=== PATIENT | female | born 2000 | race Caucasian/White ===

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

== ENCOUNTER 2022-09-27 09:03 | Observation (INO) ==
[2022-09-27] MEDS ORDERED: ONDANSETRON INJ 2 MG/ML 2 ML VIAL IV STA (09:38)
[2022-09-27] MEDS ORDERED: KETOROLAC TROMETHAMINE 15 MG/ML VIAL IV STA (09:38)
[2022-09-27] MEDS ORDERED: SODIUM CHLORIDE 0.9% 1000ML 1,000 ML IV SCH ×2 (09:39→18:17)
--- NOTE | 2022-09-27 09:43 | Emergency Department Note ---
History of Present Illness General Chief complaint: Abdominal Pain Stated complaint: ABD PAIN, POSSIBLE MISCARRIAGE Time Seen by Provider: 09/27/22 09:15 History of Present Illness Maximum Pain Intensity: 6 Patient is a 22-year-old female with past medical history significant for Analilia-Danlos syndrome, fibromyalgia, OCD, anxiety, depression and migraine disorder who presents emergency department for evaluation of irregular vaginal bleeding and right lower quadrant abdominal pain. Last menstrual period was 08/27, and normally her cycles are 30 days. She was sexually active at the time of her last menses. She states he used a condom but she was not sure if it fit properly. She states that she developed heavy vaginal bleeding starting 09/18, which was weak earlier than her normal menses was expected. She states that it started as spotting, then developed into large clots, she had some fairly heavy bleeding for about 4 days which eventually tapered off, she has not had any b leeding for 2 days. At the same time as the onset of the bleeding, she has had a sharp, right lower quadrant abdominal pain. The pain has persisted, despite the bleeding stopped, and is getting worse. It is not radiating across to the suprapubic region. She reports having a headache from this and feeling near syncopal from the pain. She is tried warm baths and Tylenol for the discomfort. She currently rates her pain a 6/10. She did not try taking a home test. Denies nausea or vomiting. No fevers. Home Medications Medication Instructions Recorded Confirmed Type cholecalciferol (vitamin D3) 1,250 50,000 unit PO . Q 2WEEKS 08/27/21 09/27/22 History mcg (50,000 unit) capsule ferrous sulfate 325 mg (65 mg 325 mg PO DAILY 08/27/21 09/27/22 History iron) tablet (FeroSul) hydroxyzine HCl 25 mg tablet 25 mg PO Q4H PRN Anxiety 08/27/21 09/27/22 History levocetirizine 5 mg tablet (Xyzal) 5 mg PO DAILY 08/27/21 09/27/22 History clindamycin phosphate 1 % lotion 1 applic topical DAILY PRN 09/27/22 09/27/22 History folliculitis Allergies Allergy/AdvReac Type Severity Reaction Status Date / Time kiwi Allergy Mild mouth Verified 10/10/21 21:33 hoffman/swells soy Allergy Mild painful Verified 10/10/21 21:33 stomach and mouth tingles Past Med/Surg History Medical History Anxiety Depression EDS (Analilia-Danlos syndrome) Fibromyalgia History of migraine headaches OCD (obsessive compulsive disorder) Surgical History History of tonsillectomy Social History Smoking Status: Never smoker Preferred Language: Ukrainian Current Living Situation Comment: roommate 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 Feels Safe at Home: Yes Review of Systems A total of 10 systems reviewed and were otherwise negative Physical Exam Vital Signs Vital Signs - 24 hr 09/27/22 09:05 09/27/22 12:42 09/27/22 13:52 Temperature 36.4 C L Temperature Source Temporal Artery Scan Pulse Rate 119 H 84 Pulse Rate [Left Finger] 91 H Pulse Rhythm [Left Finger] Regular Pulse Strength [Left Finger] Normal Respiratory Rate 20 20 20 Respiratory Effort / Characteristics Non-Labored Spontaneous Non-Labored Spontaneous Respiratory Depth Normal Normal Respiratory Pattern Regular Blood Pressure 137/99 139/96 Blood Pressure [Right Arm] 154/99 H Blood Pressure Mean 111 110 Blood Pressure Mean [Right Arm] 117 Blood Pressure Position [Right Arm] Sitting Pulse Oximetry 99 97 100 Oxygen Delivery Method Room Air Room Air Room Air Sepsis Recent Fever Within 48 Hours No Sepsis New/Unexplained Change in Mental Status No Sepsis Action Taken by Nursing No Action Required 09/27/22 14:20 Temperature 37 C Temperature Source Oral Pulse Rate Pulse Rate [Left Finger] 96 H Pulse Rhythm [Left Finger] Regular Pulse Strength [Left Finger] Normal Respiratory Rate 18 Respiratory Effort / Characteristics Non-Labored Spontaneous Respiratory Depth Normal Respiratory Pattern Regular Blood Pressure Blood Pressure [Right Arm] 139/82 Blood Pressure Mean Blood Pressure Mean [Right Arm] 101 Blood Pressure Position [Right Arm] Lying Pulse Oximetry 100 Oxygen Delivery Method Room Air Sepsis Recent Fever Within 48 Hours Sepsis New/Unexplained Change in Mental Status Sepsis Action Taken by Nursing CONSTITUTIONAL: Well-appearing 22-year-old female who is awake and alert and in no acute distress. EYES: Pupils equal, round, reactive to light and accommodation. EOMs intact without nystagmus. Sclera are anicteric. ENT: Tympanic membranes intact, with normal landmarks. External canals are clear. Oral and nasopharynx are clear. Mucous membranes are moist, no lesions, tongue and gums appear normal. CARDIOVASCULAR: Regular rate and rhythm. Peripheral pulses easily palpable. RESPIRATORY: Breath sounds equal and clear to auscultation. ABDOMEN: Bowel sounds are present. The abdomen is soft, mildly obese, tender to percussion and palpation in the right lower quadrant, with guarding. No rigidity. INTEGUMENTARY: No lesions or rash, normal skin turgor. LYMPH: No lymphadenopathy. Course Course The patient was seen and assessed as above. External medical records are reviewed. She presents to the emergency department for evaluation of irregular vaginal bleeding x1 week with associated right lower quadrant pain. Pain is been present for a week and gotten worse in the last couple of days. IV lock was initiated and laboratory studies were collected. She was hydrated with normal saline solution and medicated with Zofran and Toradol for pain. CBC with differential, CMP, quantitative hCG and urinalysis were ordered. CT scan of the abdomen and pelvis with IV contrast was obtained. Laboratory studies per my interpretation note a normal white count 10,600, left shift noted. No anemia. Electrolytes and renal functions are normal. Transaminases are not elevated. Quantitative hCG is undetectable, making unlikely. A urine sample was sent for microscopy and was completely clear with no signs of UTI. Patient was reassessed. Laboratory studies were reviewed with her. She did report that her pain was improved with the IV medications. She is going to CAT scan. CT scan of the abdomen and pelvis with IV contrast per my interpretation note swelling and dilation of the appendix with periappendiceal fat stranding and fluid concerning for acute appendicitis. No abscess. No pneumoperitoneum. Remainder of the CT scan is unremarkable, specifically the reproductive organs. Patient was reassessed. CT scan findings were reviewed with her, and she is aware of pending surgical consultation. Patient was discussed with Em Sanders PA-C working with Dr. Freeman today. Please refer to surgical consultation for further information. Patient will be taken to the OR later today. Administered Medications Discontinued Medications Bupivacaine HCl (Bupivacaine 0.5 % 5 Mg/1 Ml Mpf 30ml Vial) Confirm Administered Dose 30 ml .ROUTE .Peerflix ONE Stop: 09/27/22 14:43 Last Admin: 09/27/22 15:51 Dose: 10 ml Documented By: [facility] Sodium Chloride (Nss 1000ml) 1,000 mls @ 999 mls/hr IV .Q1H1M JUAN Stop: 09/27/22 10:39 Last Infusion: 09/27/22 11:59 Dose: 0 mls/hr Documented By: Admin: 09/27/22 10:02 Dose: 999 mls/hr Documented By: Cefoxitin Sodium (Mefoxin) 2,000 mg in 60 mls @ 100 mls/hr IV NOW STA Stop: 09/27/22 14:40 Last Admin: 09/27/22 14:57 Dose: 100 mls/hr Documented By: [id number] Ioversol (Optiray 320 100ml) 86 ml IV ONCE ONE Stop: 09/27/22 11:48 Last Admin: 09/27/22 11:47 Dose: 86 ml Documented By: [place] Ketorolac Tromethamine (Ketorolac Tromethamine 15 Mg/Ml Vial) 15 mg IV NOW STA Stop: 09/27/22 09:39 Last Admin: 09/27/22 10:05 Dose: 15 mg Documented By: Ondansetron HCl (Ondansetron Inj 2 Mg/Ml 2 Ml Vial) 4 mg IV NOW STA Stop: 09/27/22 09:39 Last Admin: 09/27/22 10:03 Dose: 4 mg Documented By: Medical Decision Making Differential Diagnosis Differential diagnoses entertained included UTI, pyelonephritis, kidney stone, ectopic , , PID, tubo-ovarian abscess, appendicitis, hernia, bowel obstruction, ruptured ectopic, among others. Medical Records Attestation: I reviewed the patient's medical records. Home Medications Current Medication List: was personally reviewed by me Laboratory Data Attestation: I reviewed the patient's lab results. 09/27/22 10:06 09/27/22 10:06 Lab Results 09/27/22 09/27/22 09/27/22 Range/Units 10:06 10:06 10:06 WBC 10.60 (4.8-10.8) K/ul RBC 4.58 (4.20-5.40) M/uL Hgb 13.7 (12.0-16.0) g/dl Hct 40.2 (37.0-47.0) % MCV 87.8 (80.0-100.0) fL MCH 29.9 (25.0-34.0) pg MCHC 34.1 (32.0-36.0) g/dL RDW Std Deviation 39.2 (36.4-46.3) fL RDW Coeff of Lopez 12.2 (11.5-14.5) % Plt Count 257 (130-400) K/uL MPV 9.9 (9.4-12.4) fL Immature Gran % (Auto) 0.4 % Neut % (Auto) 78.4 % Lymph % (Auto) 13.3 % Kimball % (Auto) 7.1 % Eos % (Auto) 0.4 % Baso % (Auto) 0.4 % Neut # (Auto) 8.32 H (1.40-6.50) K/uL Lymph # (Auto) 1.41 (1.2-3.4) K/uL Kimball # (Auto) 0.75 H (0.11-0.59) K/uL Eos # (Auto) 0.04 (0-0.50) K/uL Baso # (Auto) 0.04 (0-0.2) K/uL Immature Gran # (Auto) 0.04 (0.01-0.20) K/uL Sodium 138 (136-145) mmol/L Potassium 4.2 (3.5-5.1) mmol/L Chloride 105 (98-107) mmol/L Carbon Dioxide 29 (21-32) mmol/L Anion Gap 4 (3-11) BUN 10 (6-23) mg/dl Creatinine 0.89 (0.6-1.2) mg/dl Est Cr Clr Drug Dosing 121.9 ml/min Est GFR ( Amer) 105.9 ml/min Est GFR (Non-Af Amer) 91.4 ml/min BUN/Creatinine Ratio 11.2 (10-20) Glucose 93 (70-99(Fasting)) mg/dl Calcium 9.4 (8.6-10.3) mg/dl Total Bilirubin 0.3 (0.2-1.0) mg/dl AST 14 (13-39) U/L ALT 15 (7-52) U/L Alkaline Phosphatase 59 (34-104) U/L Total Protein 7.0 (6.0-8.3) gm/dl Albumin 4.2 (3.4-5.0) gm/dl Globulin 2.8 (2.5-4.0) gm/dl Albumin/Globulin Ratio 1.5 (0.9-2) HCG, Quant < 1 mIU/ml Urine Color Urine Appearance (Clear) Urine pH (4.5-7.5) Ur Specific Phoenix (1.000-1.030) Urine Protein (Negative) Urine Glucose (UA) (Negative) Urine Ketones (Negative) Urine Blood (Negative) Urine Nitrite (Negative) Urine Bilirubin (Negative) Urine Urobilinogen (Negative) Ur Leukocyte Esterase (Negative) SARS-CoV-2, RNA, NAAT (NEGATIVE) 09/27/22 09/27/22 Range/Units 12:40 Unknown WBC (4.8-10.8) K/ul RBC (4.20-5.40) M/uL Hgb (12.0-16.0) g/dl Hct (37.0-47.0) % MCV (80.0-100.0) fL MCH (25.0-34.0) pg MCHC (32.0-36.0) g/dL RDW Std Deviation (36.4-46.3) fL RDW Coeff of Lopez (11.5-14.5) % Plt Count (130-400) K/uL MPV (9.4-12.4) fL Immature Gran % (Auto) % Neut % (Auto) % Lymph % (Auto) % Kimball % (Auto) % Eos % (Auto) % Baso % (Auto) % Neut # (Auto) (1.40-6.50) K/uL Lymph # (Auto) (1.2-3.4) K/uL Kimball # (Auto) (0.11-0.59) K/uL Eos # (Auto) (0-0.50) K/uL Baso # (Auto) (0-0.2) K/uL Immature Gran # (Auto) (0.01-0.20) K/uL Sodium (136-145) mmol/L Potassium (3.5-5.1) mmol/L Chloride (98-107) mmol/L Carbon Dioxide (21-32) mmol/L Anion Gap (3-11) BUN (6-23) mg/dl Creatinine (0.6-1.2) mg/dl Est Cr Clr Drug Dosing ml/min Est GFR ( Amer) ml/min Est GFR (Non-Af Amer) ml/min BUN/Creatinine Ratio (10-20) Glucose (70-99(Fasting)) mg/dl Calcium (8.6-10.3) mg/dl Total Bilirubin (0.2-1.0) mg/dl AST (13-39) U/L ALT (7-52) U/L Alkaline Phosphatase (34-104) U/L Total Protein (6.0-8.3) gm/dl Albumin (3.4-5.0) gm/dl Globulin (2.5-4.0) gm/dl Albumin/Globulin Ratio (0.9-2) HCG, Quant mIU/ml Urine Color Yellow Urine Appearance Clear (Clear) Urine pH 5.5 (4.5-7.5) Ur Specific [place] 1.024 (1.000-1.030) Urine Protein Negative (Negative) Urine Glucose (UA) Negative (Negative) Urine Ketones Trace H (Negative) Urine Blood Negative (Negative) Urine Nitrite Negative (Negative) Urine Bilirubin Negative (Negative) Urine Urobilinogen Negative (Negative) Ur Leukocyte Esterase Negative (Negative) SARS-CoV-2, RNA, NAAT NEGATIVE (NEGATIVE) Imaging Data Attestation: I personally reviewed and interpreted this imaging study as follows: Radiologist's Impression: Abdomen/Pelvis CT 09/27/22 09:38 CT abd pelvis IV con only CLINICAL HISTORY: RLQ ABD PAIN, HEAVY VAGINAL BLEEDING TECHNIQUE: Helical axial images of the abdomen and pelvis were obtained and displayed. Automated dose lowering techniques and/or adjustment according to patient size were utilized for this exam. This exam was performed with intravenous contrast. CT DOSE: 1635.56 mGy.cm COMPARISON: Comparison is made to CT abdomen pelvis 10/10/2021 FINDINGS: Lower chest: No acute abnormality. Liver: Unremarkable. No focal lesions are seen. Gallbladder and biliary tree: No calcified gallstones. Normal caliber wall. No intra- or extrahepatic biliary ductal dilation. Pancreas: Unremarkable, no focal lesions. Spleen: Unremarkable. Adrenals: Unremarkable. Kidneys and ureters: Unremarkable. Bladder: Unremarkable. Reproductive organs: Unremarkable. Bowel: The appendix is enlarged measuring 13 mm in diameter with surrounding fat stranding. Lymph nodes Retroperitoneal: Unremarkable. Pelvic: Unremarkable. Mesenteric: Mesenteric nodes are seen most prominent in the right lower quadrant measuring up to 12 mm. Peritoneum: Right lower quadrant fat stranding and trace free fluid is seen. No pneumoperitoneum is seen. Vessels: Unremarkable. Abdominal wall: Unremarkable. Bones: Unremarkable. IMPRESSION: Appendicitis is seen without evidence of rupture or abscess formation. ACT 112: Negative or not required by law. Electronically signed by: Gonzalez Padilla M.D. 09/27/2022 12:18 PM MDM Narrative See ED course. Impression & Plan Acute appendicitis, Abnormal vaginal bleeding Discharge Plan Visit Data Chief Complaint: Abdominal Pain Stated Complaint: ABD PAIN, POSSIBLE MISCARRIAGE ED Provider: Luther Minaya ED Midlevel Provider: Sara Mac Discharge Problem: Acute appendicitis, Abnormal vaginal bleeding Patient Disposition: Being Evaluated by Surgeon Discharge Instructions Interventions: ED Discharge Assessment Last Done: 09/27/22 14:17 Acute appendicitis Qualifiers: Acute appendicitis type: with localized peritonitis Appendicitis gangrene presence: without gangrene Appendicitis perforation presence: without perforation Appendicitis abscess presence: without abscess Qualified Code(s): K35.30 - Acute appendicitis with localized peritonitis, without perforation or gangrene
[2022-09-27 10:27] LABS: Basophils # (auto) 0.04 K/uL (0-0.2); Basophils % (auto) 0.4 %; Eosinophils # (auto) 0.04 K/uL (0-0.50); Eosinophils % (auto) 0.4 %; Hematocrit (blood only) 40.2 % (37.0-47.0); Hemoglobin 13.7 g/dl (12.0-16.0); Immature Granulocytes # (auto) 0.04 K/uL (0.01-0.20); Immature Granulocytes % (auto) 0.4 %; Lymphocytes # (auto) 1.41 K/uL (1.2-3.4); Lymphocytes % (auto) 13.3 %; Mean Corpuscular Hemoglobin 29.9 pg (25.0-34.0); Mean Corpuscular Hgb Conc 34.1 g/dL (32.0-36.0); Mean Corpuscular Volume 87.8 fL (80.0-100.0); Mean Platelet Volume 9.9 fL (9.4-12.4); Monocytes # (auto) 0.75 K/uL (0.11-0.59); Monocytes % (auto) 7.1 %; Neutrophils # (auto) 8.32 K/uL (1.40-6.50); Neutrophils % (auto) 78.4 %; Platelet Count 257 K/uL (130-400); RDW Coefficient of Variation 12.2 % (11.5-14.5); RDW Standard Deviation 39.2 fL (36.4-46.3); Red Blood Count 4.58 M/uL (4.20-5.40)
[2022-09-27 10:41] LABS: Appearance Urine Clear (Clear); Bilirubin Urine Negative (Negative); Blood Urine Negative (Negative); Color Urine Yellow; Glucose Urine UA Negative (Negative); Ketones Urine Trace (Negative); Leukocyte Esterase Urine Negative (Negative); Nitrite Urine Negative (Negative); Protein Urine Negative (Negative); Specific Gravity Urine 1.024 (1.000-1.030); Urobilinogen Urine Negative (Negative); pH Urine 5.5 (4.5-7.5)
[2022-09-27 10:51] LABS: Albumin Globulin Ratio 1.5 (0.9-2); Albumin Level 4.2 gm/dl (3.4-5.0); BUN Creatinine Ratio 11.2 (10-20); Bilirubin,Total 0.3 mg/dl (0.2-1.0); Calcium 9.4 mg/dl (8.6-10.3); Creatinine Clr Calc Pharmacy 121.9 ml/min; Est GFR (African American) 105.9 ml/min; Est GFR (Non-African American) 91.4 ml/min; Globulin 2.8 gm/dl (2.5-4.0); Potassium 4.2 mmol/L (3.5-5.1)
[2022-09-27] MEDS ORDERED: OPTIRAY 320 100ml IV ONE (11:47)
--- NOTE | 2022-09-27 12:20 | CT Scan Report ---
CT abd pelvis IV con only CLINICAL HISTORY: RLQ ABD PAIN, HEAVY VAGINAL BLEEDING TECHNIQUE: Helical axial images of the abdomen and pelvis were obtained and displayed. Automated dose lowering techniques and/or adjustment according to patient size were utilized for this exam. This e xam was performed with intravenous contrast. CT DOSE: 1635.56 mGy.cm COMPARISON: Comparison is made to CT abdomen pelvis 10/10/2021 FINDINGS: Lower chest: No acute abnormality. Liver: Unremarkable. No focal lesions are seen. Gallbladder and biliary tree: No calcified gallstones. Normal caliber wall. No intra- or extrahepatic biliary ductal dilation. Pancreas: Unremarkable, no focal lesions. Spleen: Unremarkable. Adrenals: Unremarkable. Kidneys and ureters: Unremarkable. Bladder: Unremarkable. Reproductive organs: Unremarkable. Bowel: The appendix is enlarged measuring 13 mm in diameter with surrounding fat stranding. Lymph nodes Retroperitoneal: Unremarkable. Pelvic: Unremarkable. Mesenteric: Mesenteric nodes are seen most prominent in the right lower quadrant measuring up to 12 m m. Peritoneum: Right lower quadrant fat stranding and trace free fluid is seen. No pneumoperitoneum is s een. Vessels: Unremarkable. Abdominal wall: Unremarkable. Bones: Unremarkable. IMPRESSION: Appendicitis is seen without evidence of rupture or abscess formation. ACT 112: Negative or not required by law. Electronically signed by: Gonzalez Padilla M.D. 09/27/2022 12:18 PM
--- NOTE | 2022-09-27 13:31 | History & Physical Report ---
Date of Service September 27, 2022 Assessment & Plan (1) Acute appendicitis: Plan: This is a 22yF with a PMH of analilia-danlos syndrome, OCD, fibromyalgia, depression/anxiety who presented to the [facility] ED on 09/27/22 with complaints of RLQ pain associated with recent vaginal bleeding. Her pain has been present over the last week or so and has worsened over the last 2 days despite her vaginal bleeding stopping. Today in the ER a CT a/p was obtained that revealed findings of acute appendicitis. Vital signs are stable and she is afebrile. WBC 10. test negative. On exam abdomen is soft, non distended, with discomfort elicited in the RLQ upon palpation. We will book patient for the OR for lap appy today. Keep npo with ivf and pre-op abx. Dr. Freeman will be by to obtain consent. History of Present Illness Primary Care Provider: [facility] This is a 22yF with a PMH of analilia-danlos syndrome, OCD, fibromyalgia, depression/anxiety who presented to the [facility] ED on 09/27/22 with complaints of RLQ pain associated with recent vaginal bleeding. The patient states she thought she was having a miscarriage about 1 week ago when she started having vaginal bleeding that was heavy and associated with clots at times. Timing was about 1 week prior to her normal menstrual cycle. She had RLQ pain around this time as well. Over the last 2 days the bleeding stopped but her RLQ has persisted and been getting worse. She reports chills and sweats and denies n/v, cp/sob, or change in bowel habits. Her pain was a 10/10 in severity this AM prompting her to come into the ER. A CT a/p was obtained that revealed findings of acute appendicitis. She denies any prior abdominal surgical history. She last ate a bite of a carrot and piece of pie at 4am and has been npo since. She does not use oral contraception due to her EDS and had an IUD in the past that rejected. test here was negative. Allergies Allergy/AdvReac Type Severity Reaction Status Date / Time kiwi Allergy Mild mouth Verified 10/10/21 21:33 hoffman/swells soy Allergy Mild painful Verified 10/10/21 21:33 stomach and mouth tingles Home Medications Medication Instructions Recorded Confirmed Type cholecalciferol (vitamin D3) 1,250 50,000 unit PO . Q 2WEEKS 08/27/21 09/27/22 History mcg (50,000 unit) capsule ferrous sulfate 325 mg (65 mg 325 mg PO DAILY 08/27/21 09/27/22 History iron) tablet (FeroSul) hydroxyzine HCl 25 mg tablet 25 mg PO Q4H PRN Anxiety 08/27/21 09/27/22 History levocetirizine 5 mg tablet (Xyzal) 5 mg PO DAILY 08/27/21 09/27/22 History clindamycin phosphate 1 % lotion 1 applic topical DAILY PRN 09/27/22 09/27/22 History folliculitis Past Med/Surg History Medical History Anxiety Depression EDS (Analilia-Danlos syndrome) Fibromyalgia History of migraine headaches OCD (obsessive compulsive disorder) Surgical History History of tonsillectomy Social History Smoking Status: Never smoker Preferred Language: Korean Current Living Situation Comment: roommate 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 Feels Safe at Home: Yes Review of Systems Constitutional: + chills and + sweats; no fever Respiratory: no dyspnea Cardiovascular: no chest pain Gastrointestinal: + abdominal pain (RLQ) and + bloating; no nausea, no vomiting and no change in bowel habits Genitourinary: + problem reported (recent vaginal bleeding ended 2 days ago) Physical Exam Physical Exam: awake/alert, no distress Constitutional: well developed, well nourished and comfortable; no acute distress Respiratory: normal respiratory effort Cardiovascular: Rate/Rhythm: regular rate Gastrointestinal (Abdomen): Inspection/Auscultation: abdomen not distended and no abdominal surgical scar Percussion/Palpation: + abdomen tender (ttp in the RLQ) and abdomen soft Results & Data Results & Data Vital Signs (Past 12 Hours) Vital Signs Temp Pulse Pulse Resp BP BP Pulse Ox 09/27/22 12:42 91 H 20 154/99 H 97 09/27/22 09:05 36.4 C L 119 H 20 137/99 99 O2 Del Method 09/27/22 12:42 Room Air 09/27/22 09:05 Room Air Diagnostic Findings CT abd pelvis IV con only CLINICAL HISTORY: RLQ ABD PAIN, HEAVY VAGINAL BLEEDING TECHNIQUE: Helical axial images of the abdomen and pelvis were obtained and displayed. Automated dose lowering techniques and/or adjustment according to patient size were utilized for this exam. This exam was performed with intravenous contrast. CT DOSE: 1635.56 mGy.cm COMPARISON: Comparison is made to CT abdomen pelvis 10/10/2021 FINDINGS: Lower chest: No acute abnormality. Liver: Unremarkable. No focal lesions are seen. Gallbladder and biliary tree: No calcified gallstones. Normal caliber wall. No intra- or extrahepatic biliary ductal dilation. Pancreas: Unremarkable, no focal lesions. Spleen: Unremarkable. Adrenals: Unremarkable. Kidneys and ureters: Unremarkable. Bladder: Unremarkable. Reproductive organs: Unremarkable. Bowel: The appendix is enlarged measuring 13 mm in diameter with surrounding fat stranding. Lymph nodes Retroperitoneal: Unremarkable. Pelvic: Unremarkable. Mesenteric: Mesenteric nodes are seen most prominent in the right lower quadrant measuring up to 12 mm. Peritoneum: Right lower quadrant fat stranding and trace free fluid is seen. No pneumoperitoneum is seen. Vessels: Unremarkable. Abdominal wall: Unremarkable. Bones: Unremarkable. IMPRESSION: Appendicitis is seen without evidence of rupture or abscess formation. ACT 112: Negative or not required by law. Electronically signed by: Gonzalez Padilla M.D. 09/27/2022 12:18 PM Supervising Physician Co-Signing Physician Notes Dr. Wolff did see the patient in the emergency room We are going to proceed with laparoscopic appendectomy possible open appendectomy She does understand and wishes to proceed PG Care Time/CCT Total # of Minutes Spent Total Time Spent with Patient: Total time spent is greater than 50% in coordination of care (as documented) at patient's floor/unit and/or counseling patient: Coding Level of Care Code 81854 INT INP/OBS CARE MIN Diagnoses Acute appendicitis K35.30 Acute appendicitis type: with localized peritonitis Appendicitis abscess presence: without abscess Appendicitis gangrene presence: without gangrene Appendicitis perforation presence: without perforation (1) Acute appendicitis Acute appendicitis type: with localized peritonitis Appendicitis abscess presence: without abscess Appendicitis gangrene presence: without gangrene Appendicitis perforation presence: without perforation Qualified Code(s): K35.30 - Acute appendicitis with localized peritonitis, without perforation or gangrene
[2022-09-27] MEDS ORDERED: cefOXitin 2,000 MG/60 ML BAG IV STA (14:05)
[2022-09-27] MEDS ORDERED: BUPIVACAINE 0.5 % 5 MG/1 ML MPF 30ML VIAL ONE (14:42)
[2022-09-27] MEDS ORDERED: ONDANSETRON INJ 2 MG/ML 2 ML VIAL ONE (14:49)
[2022-09-27] MEDS ORDERED: PROPOFOL IV EMULSION 10 MG/ML 20 ML VIAL IV ONE (14:49)
[2022-09-27] MEDS ORDERED: DEXAMETHASONE SOD INJ 4 MG/ML VIAL ONE (14:49)
[2022-09-27] MEDS ORDERED: LIDOCAINE 2% 2 ML VIAL/AMP(20MG/ML) INFIL ONE (14:49)
[2022-09-27] MEDS ORDERED: MIDAZOLAM HCL 1 MG/ML 2ML VIAL ONE (14:49)
[2022-09-27] MEDS ORDERED: ROCURONIUM BROMIDE 10 MG/ML 5 ML VIAL IV ONE ×2 (14:49→15:56)
[2022-09-27] MEDS ORDERED: fentaNYL citrate PF 100 MCG/2 ML VIAL ONE ×2 (14:49→15:30)
--- NOTE | 2022-09-27 14:50 | Anesthesiology Consultation ---
Date of Service September 27, 2022 Assessment & Plan Chart Review Chart Review: Acceptable Risk for Surgery Consults Requested none History Surgery Operation Date: 09/27/22 09:10 Proposed Procedures p Laparoscopic Appendectomy - Gen Freeman MD, FACS Height/Weight Height: 5 ft 7 in Weight: 103.9 kg Allergies Allergy/AdvReac Type Severity Reaction Status Date / Time kiwi Allergy Mild mouth Verified 10/10/21 21:33 hoffman/swells soy Allergy Mild painful Verified 10/10/21 21:33 stomach and mouth tingles Medications Home Medications Medication Instructions Recorded Confirmed Last Taken cholecalciferol (vitamin D3) 1,250 50,000 unit PO . Q 2WEEKS 08/27/21 09/27/22 1 Month Ago mcg (50,000 unit) capsule ~08/28/22 ferrous sulfate 325 mg (65 mg 325 mg PO DAILY 08/27/21 09/27/22 09/26/22 iron) tablet (FeroSul) hydroxyzine HCl 25 mg tablet 25 mg PO Q4H PRN Anxiety 08/27/21 09/27/22 2 Weeks Ago ~09/13/22 levocetirizine 5 mg tablet (Xyzal) 5 mg PO DAILY 08/27/21 09/27/22 09/26/22 clindamycin phosphate 1 % lotion 1 applic topical DAILY PRN 09/27/22 09/27/22 1 Week Ago folliculitis ~09/20/22 NPO Date Last Intake of Fluids: 09/26/22 Time Last Intake of Fluids: 04:00 Date Last Intake of Solids: 09/26/22 Time Last Intake of Solids: 04:00 Past Medical History Medical History Anxiety Depression EDS (Analilia-Danlos syndrome) Fibromyalgia History of migraine headaches OCD (obsessive compulsive disorder) Past Surgical History Surgical History History of tonsillectomy Social History Smoking Status: Never smoker Physical Exam Vital Signs Last Vital Signs Temp 37 C 09/27/22 14:20 Pulse 96 H 09/27/22 14:20 Resp 18 09/27/22 14:20 BP 139/82 09/27/22 14:20 Pulse Ox 100 09/27/22 14:20 O2 Del Method Room Air 09/27/22 14:20 Testing Laboratory Results 09/27/22 10:06 09/27/22 10:06 HCG, Quant < 1 mIU/ml 09/27/22 10:06 Urine Color Yellow 09/27/22 Unknown Urine Appearance Clear (Clear) 09/27/22 Unknown Urine pH 5.5 (4.5-7.5) 09/27/22 Unknown Ur Specific Clark 1.024 (1.000-1.030) 09/27/22 Unknown Urine Protein Negative (Negative) 09/27/22 Unknown Urine Glucose (UA) Negative (Negative) 09/27/22 Unknown Urine Ketones Trace (Negative) H 09/27/22 Unknown Urine Nitrite Negative (Negative) 09/27/22 Unknown Ur Leukocyte Esterase Negative (Negative) 09/27/22 Unknown 09/27/22 10:06 HCG, Quant < 1
[2022-09-27] MEDS ORDERED: HYDROmorphone INJ 2 MG/ML SYR/VIAL IV PRN (14:53)
[2022-09-27] MEDS ORDERED: ePHEDrine sulfate 50 MG/ML AMP IV PRN (14:53)
[2022-09-27] MEDS ORDERED: ATROPINE SULFATE 0.1 MG/ML 10ML SYR IV PRN (14:53)
[2022-09-27] MEDS ORDERED: ONDANSETRON INJ 2 MG/ML 2 ML VIAL IV PRN ×2 (14:53→18:17)
[2022-09-27] MEDS ORDERED: PROMETHAZINE HCL 12.5 MG in SODIUM CHLORIDE 0.9% 50 ML IV PRN ×2 (14:53→18:17)
[2022-09-27] MEDS ORDERED: SUGAMMADEX SODIUM 200 MG/2 ML VIAL IV ONE (15:30)
[2022-09-27] MEDS ORDERED: KETOROLAC 30 MG/ML VIAL ONE (15:30)
--- NOTE | 2022-09-27 15:52 | Post Operative Brief Note ---
PG Immediate Post Op with CF Date of Surgery September 27, 2022 Pre & Post Diagnosis Operation Date: 09/27/22 09:10 Pre-Op Diagnosis: Acute appendicitis Post-Op Diagnosis: Acute appendicitis I identified the patient and participated in the time-out.: Yes Procedure Operation Date: 09/27/22 09:10 Actual Procedures p Laparoscopic Appendectomy(Not Applicable) - Gen Freeman MD, FACS Surgeon Gen Freeman MD, FACS Plastic Manager yaya germain Estimated Blood Loss 5 Findings Consistent with Post-Op Diagnosis Acute appendicitis with no abscess Specimens Specimen Description: A. Appendix
[2022-09-27] MEDS ORDERED: ACETAMINOPHEN 1,000 MG/100 ML VIAL IV ONE (15:53)
[2022-09-27] MEDS ORDERED: oxyCODONE HCL IR 5 MG TAB (IMMEDIATE RELEASE) PO PRN ×2 (15:53→18:17)
--- NOTE | 2022-09-27 16:31 | Operative Report (OR) ---
DATE OF OPERATION: 09/27/2022. NAME OF OPERATION: Laparoscopic appendectomy. PREOPERATIVE DIAGNOSIS: Acute appendicitis. POSTOPERATIVE DIAGNOSIS: Acute appendicitis. STAFF SURGEON: Gen Freeman MD. OPERATIONS AGENT: Em Sanders. ANESTHESIA: General. DESCRIPTION OF PROCEDURE: The patient was brought in the operating room and placed on the operating table in supine position. Her abdomen was prepped and draped in the usual fashion. Pneumatic stocki ngs and orogastric tube were placed. 0.5% plain Marcaine was used to anesthetize all incisions. Inc ision was made above the umbilicus, carrying dissection down through significant adipose tissue to th e fascia, placing a Veress needle producing pneumoperitoneum. An 11 mm port placed at this level and then under visualization, 5 mm port placed suprapubically, left lower quadrant 12 mm port placed. T he appendix was very thick and indurated. The base appeared to be normal. The base was transected u sing the Endo NAYELI stapler 45 brown load. At this point, the mesoappendix was taken in 2 staplings usi ng 45 mm brown load. Appendix was placed in an Endobag and then removed through the left lower quadr ant port site. I did have to stretch the site some to remove the large appendix. After appropriate irrigation and hemostasis, all ports were removed. Fascia at the umbilicus and left lower quadrant c losed using interrupted 0 PDS suture. Subcutaneous tissue reapproximated using 2-0 plain suture, the n the skin reapproximated using subcuticular 4-0 Monocryl with Dermabond at the umbilicus and suprapu bic area, and Steri-Strips for left lower quadrant. The patient was transferred to recovery room in stable condition. Job ID: [id number]
[2022-09-27] MEDS: fentaNYL citrate PF 100 MCG/2 ML VIAL IV PRN ×3 (17:03→17:13)
--- NOTE | 2022-09-27 17:21 | Anesthesiology Progress Note ---
Date of Service September 27, 2022 Anesthesia Post Procedure Vital Signs Vital Signs: Temp Pulse Pulse Pulse Resp BP BP 09/27/22 17:20 82 14 113/78 09/27/22 17:05 81 18 122/76 09/27/22 16:50 85 20 123/71 09/27/22 16:35 97.5 F L 90 18 120/71 09/27/22 16:25 93 H 24 123/74 09/27/22 16:15 94 H 20 130/80 09/27/22 16:05 96.8 F L 108 H 26 H 139/80 09/27/22 14:20 98.6 F 96 H 18 09/27/22 13:52 84 20 139/96 09/27/22 12:42 91 H 20 09/27/22 09:05 97.5 F L 119 H 20 137/99 BP Pulse Ox O2 Del Method O2 Flow Rate 09/27/22 17:20 93 Room Air 09/27/22 17:05 93 Room Air 09/27/22 16:50 95 Room Air 09/27/22 16:35 95 Room Air 09/27/22 16:25 99 Room Air 09/27/22 16:15 100 Oxymask 4 09/27/22 16:05 99 Oxymask 6 09/27/22 14:20 139/82 100 Room Air 09/27/22 13:52 100 Room Air 09/27/22 12:42 154/99 H 97 Room Air 09/27/22 09:05 99 Room Air Pain Intensity Abdomen: Pain Intensity: 2 Transfer of Care Handoff Completed per policy Notes Mental Status: alert / awake / arousable and participated in evaluation Patient Amnestic to Procedure: Yes Nausea / Vomiting: adequately controlled Pain: adequately controlled Airway Patency, RR, SpO2: stable & adequate BP & HR: stable & adequate Hydration State: stable & adequate Anesthetic Complications: no major complications apparent and Pt Satisfied with anesthetic care
[2022-09-27] MEDS ORDERED: hydrOXYzine HCl 25 MG TAB PO PRN (18:17)
[2022-09-27] MEDS ORDERED: HYDROmorphone INJ 0.5 MG/0.5 ML SYR IV PRN (18:17)
[2022-09-27] MEDS: ACETAMINOPHEN 325 MG TAB PO PRN (22:47)
[2022-09-27] MEDS ORDERED: Nursing to Pharmacy Communication SCH (23:45)
[2022-09-28] MEDS ORDERED: HYDROCODONE/ACETAMOPHEN 5/325MG TAB PO PRN (05:04)
--- NOTE | 2022-09-28 06:35 | Surgery Progress Note ---
Date of Service September 28, 2022 Assessment & Plan (1) S/P laparoscopic appendectomy: Plan: Patient is doing well Tolerated hydrocodone Tolerating liquids Plan discharge home later today-before lunch We will continue pain medication and Augmentin for a few days Admission and Anticipated Discharge Date Admission Date: September 27, 2022 Results & Data Vital Signs (Past 12 Hours) Vital Signs Temp Pulse Pulse Resp BP Pulse Ox O2 Del Method 09/28/22 03:41 36.5 C 69 16 95/60 L 96 Room Air 09/28/22 00:51 36.5 C 72 20 109/62 96 Room Air 09/27/22 21:57 88 20 127/86 96 Room Air 09/27/22 20:35 37.1 C 110 H 22 123/88 94 Room Air 09/27/22 19:35 37 C 88 20 134/80 98 Room Air 09/27/22 18:35 82 18 125/69 94 Room Air PG Care Time/CCT Total # of Minutes Spent Total Time Spent with Patient: Total time spent is greater than 50% in coordination of care (as documented) at patient's floor/unit and/or counseling patient: Coding Level of Care Code 96563 Post Operative Follow-Up Diagnoses S/P laparoscopic appendectomy Z90.49
[2022-09-28] MEDS: ACETAMINOPHEN 325 MG TAB PO PRN (07:42)
[2022-09-28] MEDS ORDERED: CETIRIZINE HCL 10 MG TABLET PO SCH (09:00)
--- NOTE | 2022-09-29 15:03 | Discharge Summary ---
Date of Service September 28, 2022 Admission HPI Per Admitting Provider This is a 22yF with a PMH of steffen-danlos syndrome, OCD, fibromyalgia, depression/anxiety who presented to the [facility] ED on 09/27/22 with complaints of RLQ pain associated with recent vaginal bleeding. The patient states she thought she was having a miscarriage about 1 week ago when she started having vaginal bleeding that was heavy and associated with clots at times. Timing was about 1 week prior to her normal menstrual cycle. She had RLQ pain around this time as well. Over the last 2 days the bleeding stopped but her RLQ has persisted and been getting worse. She reports chills and sweats and denies n/v, cp/sob, or change in bowel habits. Her pain was a 10/10 in severity this AM prompting her to come into the ER. A CT a/p was obtained that revealed findings of acute appendicitis. She denies any prior abdominal surgical history. She last ate a bite of a carrot and piece of pie at 4am and has been npo since. She does not use oral contraception due to her EDS and had an IUD in the past that rejected. test here was negative. Principal Diagnosis acute appendicitis Discharge Exam awake/alert Constitutional no acute distress Gastrointestinal (Abdomen) Inspection/Auscultation: + abdominal surgical incision (c/d/i) Percussion/Palpation: abdomen soft Discharge Data Allergies Allergy/AdvReac Type Severity Reaction Status Date / Time kiwi Allergy Mild mouth Verified 10/10/21 21:33 hoffman/swells soy Allergy Mild painful Verified 10/10/21 21:33 stomach and mouth tingles Procedures Performed Operation Date: 09/27/22 09:10 Actual Procedures p Laparoscopic Appendectomy(Not Applicable) - Gen Freeman MD, FACS Ordered Studies 09/27/22 09:38 CT abd pelvis IV con only Stat Hospital Course (1) Acute appendicitis: This is a 22yF who presented to the [facility] ED on 09/27/22 with abdominal pain. Workup in the ED showed a WBC of [address] a/p concerning for acute appendicitis. The patient was tender to palpation in the RLQ. Patient made NPO with IVF and booked for the OR. On 09/27 the patient went to the OR with Dr. Degroot for a laparoscopic appendectomy. The patient tolerated the procedure well, see operative report for full details. Post operatively the patient's diet was advanced, pain managed on prn meds, and incisions clean/dry/intact. On POD#1 the patient was deemed stable for discharge to home. Total Time Total Time Spent Total Time Spent (In Minutes): 10 Discharge Plan Discharge Items Patient Disposition: Home - Self-Care Reason For Visit: ACUTE APPENDICITIS Discharge Diagnosis: laparoscopic appendectomy Activity: Per Instructions section Activity Comment: light activity for 4 weeks Lifting: No more than 10 pounds Bathing Comment: may shower starting 09/28/; no soaking in tubs/pools x2 weeks Sexual Activity: When tolerated Exercise/Sports: Wait until after follow-up appointment Exercise Comment: wait 4 weeks Driving/Machine Use: no driving while taking narcotics for pain Non-emergency contact: Surgeon Call non-emergency contact if: you have any medication questions, your symptoms worsen, your pain is not controlled, you have a fever, your temperature is above 101.5, your wound has increased redness, your wound has increased drainage and your wound pain has increased Follow-up/Referrals: Gen Freeman MD, FACS [Physician] - 10/14/22 9:00 am [facility] [Primary Care Provider] - Diet: Regular Addtl Attending Provider Instructions: SPECIAL CARE INSTRUCTIONS: * Cover incisions and change daily for comfort/drainage. * May use ibuprofen for pain as tolerated. * Expect some swelling and bruising. Call your doctor if: * Temperature above 101 degrees * Pain not relieved by pain medicine ordered * There is increased drainage or redness from any incision * You have any unanswered questions or concerns [phone]. FOLLOW UP VISIT: If not already scheduled, please call the office for a follow-up visit. OFFICE PHONE NUMBER: Dr. Freeman Office Pending Studies at Discharge: Yes Studies:: surgical pathology Stand-Alone Forms: My [facility] [employer]!, Pain - Opioid Pain Management, Smoking Cessation Medications and DC Order Prescriptions: New amoxicillin-pot clavulanate 875-125 mg tablet 1 tab PO BID Qty: 6 0RF hydrocodone-acetaminophen 5-325 mg tablet 1 tab PO Q4H PRN (Reason: pain) Qty: 30 0RF Rx Instructions: For severe pain you may take 2 tablets but not more than 6 tablets in a single day Continued cholecalciferol (vitamin D3) 1,250 mcg (50,000 unit) capsule 50,000 unit PO . Q 2WEEKS hydroxyzine HCl 25 mg tablet 25 mg PO Q4H PRN (Reason: Anxiety) Rx Instructions: 0.5 tab to 1 tab every 4 hours as needed ferrous sulfate [FeroSul] 325 mg (65 mg iron) tablet 325 mg PO DAILY levocetirizine [Xyzal] 5 mg tablet 5 mg PO DAILY clindamycin phosphate 1 % lotion 1 applic topical DAILY PRN (Reason: folliculitis) Rx Instructions: Apply to the thighs and mid back BID for flaring, once daily for maintenance after washing. Discharge Orders: Discharge Order (Routine); Ordered 09/28/22 Ordered By: Gen Jules/Other Patient Handouts: Appendectomy Admission Data Admit Date/Time: 09/27/22 16:24 Attending Provider: Gen Freeman Admit Provider: Gen Freeman Primary Care Provider: [facility] Other Interventions: Discharge Summary Assessment (RN) Last Done: 09/28/22 09:52 Coding Level of Care Code 40831 IN/OBS DISCH 30 MIN/LESS Diagnoses Acute appendicitis K35.30 Acute appendicitis type: with localized peritonitis Appendicitis abscess presence: without abscess Appendicitis gangrene presence: without gangrene Appendicitis perforation presence: without perforation
--- NOTE | 2022-09-30 03:16 | Discharge Summary (DS) ---
DATE OF ADMISSION: 09/27/2022. DATE OF DISCHARGE: 09/28/2022 PRINCIPAL DIAGNOSIS: Acute appendicitis. PROCEDURE: The patient underwent a laparoscopic appendectomy. HISTORY OF PRESENT ILLNESS: The patient is a 22-year-old female presenting to the Emergency Room wit h acute abdominal pain and found on studies to have acute appendicitis. She was taken to the operati ng room on 09/27/2022 where she underwent laparoscopic appendectomy, which she tolerated very well. She did well overnight and was felt stable for discharge the next day on 09/28/2022 to be followed in the surgical clinic within 1-2 weeks. Job ID: [id number]
== END 2022-09-28 10:25 | disposition home or self-care (01) | DRG 342 ==
LOC: ED 09:03 → ASU 14:19 → EDINP 16:24 → INTOOBSV 16:24 → 3N 19:35